=== PATIENT | male | born 1965 | race Two or more races ===

== ENCOUNTER 2017-06-10 11:26 | Emergency (ER) | payer OTHER ==
[~2017-06-10] VITALS: Ht 162.6 cm; Wt 72.6 kg
[2017-06-10 11:34] VITALS: Ht 162.6 cm; Wt 72.6 kg
[2017-06-10 13:11] VITALS: BP 148/89
== END 2017-06-10 14:08 | disposition home or self-care (01) ==
LOC: EDBD 11:26 → ED 11:26
DX: S00.33XA Contusion of nose, initial encounter (principal); I10 Essential (primary) hypertension; Y08.89XA Assault by other specified means, initial encounter; Y93.89 Activity, other specified; Y92.89 Other specified places as the place of occurrence of the external cause; Y99.8 Other external cause status
CPT/HCPCS: J7030

== ENCOUNTER 2017-08-16 15:26 | Emergency (ER) | payer SELFPAY ==
[~2017-08-16] VITALS: Ht 170.2 cm; Wt 74.4 kg
[2017-08-16 15:35] VITALS: Ht 170.2 cm; Wt 74.4 kg
[2017-08-16 17:58] VITALS: BP 135/82
== END 2017-08-16 18:05 | disposition home or self-care (01) ==
LOC: ED 15:26
DX: F10.129 Alcohol abuse with intoxication, unspecified (principal)